=== PATIENT | female | born 1950 | race Caucasian/White ===

== ENCOUNTER 2019-04-13 20:19 | Emergency (ER) | payer OTHER, BC ==
[~2019-04-13] VITALS: Ht 154.9 cm; Wt 81.6 kg
[2019-04-13 20:25] VITALS: Ht 154.9 cm; Wt 81.6 kg
[2019-04-13 23:02] VITALS: BP 168/82
== END 2019-04-13 23:02 | disposition home or self-care (01) ==
LOC: ED 20:19
DX: S42.201A Unspecified fracture of upper end of right humerus, initial encounter for closed fracture (principal); Z88.6 Allergy status to analgesic agent; Z88.8 Allergy status to other drugs, medicaments and biological substances; W01.0XXA Fall on same level from slipping, tripping and stumbling without subsequent striking against object, initial encounter; Y93.89 Activity, other specified; Y92.89 Other specified places as the place of occurrence of the external cause; Y99.8 Other external cause status
CPT/HCPCS: J3010; Q0092